=== PATIENT | male | born 1985 | race Caucasian/White ===

== ENCOUNTER 2022-10-01 23:46 | Emergency (ER) | payer SELFPAY | END 2022-10-01 23:54 | disposition home or self-care (01) | LOC: DL.ED 23:46 | DX: T69.9XXA Effect of reduced temperature, unspecified, initial encounter (principal) | CPT/HCPCS: 99282; 99283 ==

== ENCOUNTER 2023-03-15 22:41 | Emergency (ER) | payer SELFPAY | END 2023-03-15 23:07 | disposition home or self-care (01) | LOC: DL.ED 22:41 | DX: S80.811A Abrasion, right lower leg, initial encounter (principal); S80.812A Abrasion, left lower leg, initial encounter; X58.XXXA Exposure to other specified factors, initial encounter | CPT/HCPCS: 99282; 99283 ==